=== PATIENT | female | born 1950 | race African-American/Black ===

== ENCOUNTER 2021-08-20 07:55 | Emergency (ER) | payer MEDICARE, OTHER ==
[~2021-08-20] VITALS: Ht 149.9 cm; Wt 91.0 kg
[2021-08-20 12:22] LABS: CLARITY URINE CLEAR (CLEAR); COLOR URINE YELLOW (YELLOW); KETONES URINE NEGATIVE (NEGATIVE); LEUKOCYTE ESTERASE URINE NEGATIVE (NEGATIVE); NITRITE URINE POSITIVE (NEGATIVE); OCCULT BLOOD URINE NEGATIVE (NEGATIVE); PROTEIN URINE NEGATIVE (NEGATIVE); SPECIFIC GRAVITY URINE 1.024 (1.005-1.030); UROBILINOGEN URINE 0.2 E.U./dL (0.2-1.0)
[2021-08-20 13:17] LABS: BASOPHILS % 0.5 % (0.0-2.0); EOSINOPHILS % 5.9 % (0.0-5.0); HEMATOCRIT. 36.9 % (36.0-48.0); HEMOGLOBIN. 12.2 g/dL (12.0-16.0); LYMPHOCYTES % 31.9 % (20.0-50.0); MEAN CORPUSCULAR HEMOGLOBIN 29.7 pg (28.0-32.0); MEAN CORPUSCULAR VOLUME 89.9 fL (81.0-99.0); MEAN PLATELET VOLUME 6.8 fl (7.4-10.4); MONOCYTES % 6.9 % (2.0-8.0); NEUTROPHILS % 54.8 % (40.0-76.0); PLATELET 373 x1000/uL (130-400); RED BLOOD CELL COUNT 4.11 mill/uL (4.2-5.4); RED CELL DISTRIBUTION WIDTH 14.3 % (11.6-14.6)
[2021-08-20 13:24] LABS: CHLORIDE 111 mEq/L (98-107)
[2021-08-20] MEDS ORDERED: CEPH500T MT ×2 (14:42→14:54)
[2021-08-20 15:02] VITALS: BP 112/62
== END 2021-08-20 15:23 | disposition home or self-care (01) ==
LOC: ER 07:55
DX: L03.115 Cellulitis of right lower limb (principal); N39.0 Urinary tract infection, site not specified; M19.90 Unspecified osteoarthritis, unspecified site; Z98.890 Other specified postprocedural states; Z88.2 Allergy status to sulfonamides
CPT/HCPCS: 36415; 71045; 80053; 81003; 83880; 84484; 85025; 93005; 93970; 99285

== ENCOUNTER 2021-08-31 07:57 | Emergency (ER) | payer MEDICARE, MEDICAID ==
[~2021-08-31] VITALS: Ht 152.4 cm; Wt 100.0 kg
[~2021-08-31 07:57] MED LIST: CEPH500T MT
[2021-08-31] MEDS ORDERED: ACETAMINOPHEN WITH CODEINE 300/30MG TABLET PO STA (08:04)
[2021-08-31] MEDS ORDERED: CLINDAMYCIN 600MG PREMIX 50 ML IV NR (11:45)
[2021-08-31] MEDS ORDERED: CLINDAMYCIN 600 MG in DEXTROSE 5% WATER 50 ML IV ONE (11:45)
[2021-08-31] MEDS ORDERED: HYDROCODONE/ACETAMINOPHEN 10/325MG TABLET PO ONE (15:30)
[2021-08-31 16:00] VITALS: BP 123/72
[2021-08-31] MEDS ORDERED: DICL25TA2 MT (16:00)
== END 2021-08-31 17:17 | disposition home or self-care (01) ==
LOC: ER 07:57
DX: S81.801A Unspecified open wound, right lower leg, initial encounter (principal); L08.9 Local infection of the skin and subcutaneous tissue, unspecified; M19.90 Unspecified osteoarthritis, unspecified site; Z88.2 Allergy status to sulfonamides; X58.XXXA Exposure to other specified factors, initial encounter; Y93.89 Activity, other specified; Y92.018 Other place in single-family (private) house as the place of occurrence of the external cause
CPT/HCPCS: 71045; 73590; 99284; J3490; J7060

== ENCOUNTER 2025-01-15 14:43 | Inpatient (IN) | payer MEDICARE, MEDICAID ==
[~2025-01-15] VITALS: Ht 172.7 cm; Wt 89.9 kg
[~2025-01-15 14:43] MED LIST changes: +CEPH500C2 PO; -CEPH500T MT; +LOSA25TA26 PO; +PANT40TA51 PO
[2025-01-15 17:00] LABS: BASOPHILS % 0.5 % (0.0-2.0); EOSINOPHILS % 6.1 % (0.0-5.0); HEMATOCRIT. 33.7 % (36.0-48.0); HEMOGLOBIN. 10.7 g/dL (12.0-16.0); LYMPHOCYTES % 35.1 % (20.0-50.0); MEAN CORPUSCULAR HEMOGLOBIN 30.8 pg (28.0-32.0); MEAN CORPUSCULAR HGB CONC 31.9 g/dL (31.0-37.0); MEAN CORPUSCULAR VOLUME 96.7 fL (81.0-99.0); MEAN PLATELET VOLUME 6.7 fl (7.4-10.4); MONOCYTES % 6.4 % (2.0-8.0); NEUTROPHILS % 51.9 % (40.0-76.0); PLATELET 342 x1000/uL (130-400); RED BLOOD CELL COUNT 3.48 mill/uL (4.2-5.4); WHITE BLOOD COUNT 6.6 x1000/uL (4.5-11.0)
[2025-01-15 17:06] LABS: CHLORIDE 111 mEq/L (98-107); SODIUM 144 mEq/L (136-145)
[2025-01-15 17:07] LABS: CARBON DIOXIDE 21 mEq/L (21-32)
[2025-01-15 17:12] LABS: CREATININE 0.9 mg/dL (0.6-1.0); GLUCOSE 104 mg/dL (70-105); UREA NITROGEN BLOOD 24 mg/dL (9-23)
[2025-01-15 17:14] LABS: ALANINE AMINOTRANSFERASE < 7 IU/L (10-49); ALBUMIN 4.1 g/dL (3.2-4.8); ASPARTATE AMINOTRANSFERASE 13 IU/L (<34); BILIRUBIN DIRECT < 0.1 mg/dL (<=3.0); TROPONIN I HIGH SENSITIVITY < 4 ng/L (3.0-34)
[2025-01-15 17:15] LABS: BILIRUBIN TOTAL 0.2 mg/dL (0.1-1.0); PROTEIN TOTAL 7.3 g/dL (6.0-8.3)
[2025-01-15 17:32] LABS: INR 0.9; PROTHROMBIN TIME 9.8 sec (9.6-11.0)
[2025-01-15 20:00] VITALS: BP 124/47; PULSE 82; RESP 18; TEMP 36.3; O2SAT 98
[2025-01-15] MEDS: SODIUM CHLORIDE 0.9% (SEPSIS BOLUS) IV ONE (21:23)
[2025-01-15] MEDS: AMPICILLIN SOD/SULBACTAM NA 3 G in SODIUM CHLORIDE 0.9% 100 ML IV SCH (21:26)
[2025-01-15 21:50] VITALS: BP 137/61; PULSE 78; RESP 16; TEMP 36.7
[2025-01-16] VITALS: BP 137/61; PULSE 78; RESP 16; TEMP 36.3; O2SAT 99
[2025-01-16] MEDS: CEFAZOLIN 1000MG PREMIX 50ML IV SCH (02:00)
[2025-01-16 04:00] VITALS: BP 113/56; PULSE 77; RESP 16; TEMP 36.1; O2SAT 100
[2025-01-16] MEDS: ACETAMINOPHEN 650MG/20.3ML UDC PO PRN (05:38)
[2025-01-16] MEDS ORDERED: CEFAZOLIN SODIUM 1000MG/VIAL IV SCH (06:00)
[2025-01-16] MEDS ORDERED: LIDOCAINE HCL 1% 10 MG/ML 10ML VIAL ONE (07:27)
[2025-01-16 08:00] VITALS: BP 165/85; PULSE 74; RESP 17; TEMP 35.7; O2SAT 100
[2025-01-16] MEDS ORDERED: IOHEXOL-300 50 ML BOTTLE IV ONE (08:16)
[2025-01-16] MEDS: LOSARTAN 25 MG TABLET PO SCH (10:22)
[2025-01-16] MEDS: ENOXAPARIN 30MG/0.3ML SYR SUBCUT SCH (10:25)
[2025-01-16 12:00] VITALS: BP 141/59; PULSE 74; RESP 18; TEMP 36.5; O2SAT 98
[2025-01-16] MEDS: ACETAMINOPHEN 325MG TABLET PO PRN (13:57)
[2025-01-16 16:00] VITALS: BP 139/75; PULSE 65; RESP 18; TEMP 36.4; O2SAT 96
[2025-01-16 20:00] VITALS: BP 112/50; PULSE 76; RESP 18; TEMP 36.6; O2SAT 99
[2025-01-17] VITALS (8 sets, daily range): BP systolic 104–131; BP diastolic 38–67; PULSE 68–79; RESP 16–18; TEMP 35.9–36.6; O2SAT 96–100
[2025-01-17] MEDS ORDERED: AMOX1TAB16 MT (11:57)
== END 2025-01-17 20:22 | disposition home health service (06) | DRG 593 ==
LOC: ER 14:43 → EDBEDREQ 19:16 → ENRESERV 21:09 → 7EST 21:53
PROVIDERS: ADMIT Internal Medicine; ATTEND Internal Medicine
PROC: 02HV33Z Insertion of Infusion Device into Superior Vena Cava, Percutaneous Approach (ICD-10-PCS; principal; 2025-01-16)
PROC: B548ZZA Ultrasonography of Superior Vena Cava, Guidance (ICD-10-PCS; 2025-01-16)
PROC: B5181ZA Fluoroscopy of Superior Vena Cava using Low Osmolar Contrast, Guidance (ICD-10-PCS; 2025-01-16)
DX: L97.412 Non-pressure chronic ulcer of right heel and midfoot with fat layer exposed (principal); L03.115 Cellulitis of right lower limb; L03.116 Cellulitis of left lower limb; L97.815 Non-pressure chronic ulcer of other part of right lower leg with muscle involvement without evidence of necrosis; I10 Essential (primary) hypertension; M24.59 Contracture, other specified joint; I73.9 Peripheral vascular disease, unspecified; Z74.01 Bed confinement status; Z79.899 Other long term (current) drug therapy; Z88.2 Allergy status to sulfonamides; Z88.6 Allergy status to analgesic agent; Z99.3 Dependence on wheelchair
CPT/HCPCS: 36415; 36573; 71045; 73600; 80048; 80076; 83605; 84484; 85025; 87070; 87077; 87186; 93005; 96365; 96375; 99285; A4606; C1725; C1769; J0295; J0690; J1650; J2003; J7030; J7050; Q9967